=== PATIENT | female | born 1995 | race Hispanic/Latino ===

== ENCOUNTER 2017-02-06 21:29 | Emergency (ER) | payer SELFPAY ==
--- NOTE | 2017-02-06 21:59 | ER NURSING DOCUMENTATION ---
Nurse's Notes [facility] Name:Karely Harper Age:21 yrs Sex:Female :1995 Arrival Date:02/06/2017 Time:21:29 Bed1 Private MD:Madelin [facility] Diagnosis:Laryngitis, w/o Obstruction Presentation: 02/06 21:38 Presenting complaint: Patient states: throat pain and right ear pain. Transition of bw2 care: patient was not received from another setting of care. 21:38 Acuity: RENETTA 4 bw2 21:38 Method Of Arrival: Walk In 2 Triage Assessment: 21:39 General: Appears in no apparent distress, Behavior is appropriate for age. Pain: bw2 Complains of pain in throat right ear. EENT: Throat is pink. Historical: - Allergies: No known drug Allergies; - Tetanus: < 10 years. - Ebola Screening: : Patient negative for fever greater than or equal to 101.5 degrees Fahrenheit, and additional compatible Ebola Virus Disease symptoms. Patient denies exposure to infectious person. Patient denies travel to an Ebola-affected area in the 21 days before illness onset. No symptoms or risks identified at this time. . - Immunization history: Flu Vaccine None. - Social history: Smoking status: Patient states was never smoker of tobacco. Screenin:40 Infectious Disease Risk None. Abuse screen: Denies threats or abuse. Nutritional bw2 screening: No deficits noted. Assessment: 21:39 See Triage Assessment done by same RN. Respiratory: Airway is patent Respiratory effort bw2 is even, Breath sounds are clear bilaterally. Vital Signs: 21:40 BP 122 / 62; Pulse 74; Resp 18; Temp 98.5(O); Pulse Ox 97% on R/A; Weight 58.97 kg; bw2 Height 5 ft. 2 in. (157.48 cm); 21:40 Body Mass Index 23.78 (58.97 kg, 157.48 cm) bw2 ED Course: 21:31 Patient arrived in ED. em2 21:31 Physician, Ro is Private Physician. em2 21:32 Natalia Davis is Primary Nurse. bw2 21:39 Triage completed. bw2 21:40 Valuables Remains with patient. bw2 21:41 purchasing manager/sales on I Pad used to aid in communication. bw2 21:50 John Quintana MD is Attending Physician. tl1 21:50 [facility] is Referral Physician. tl1 21:56 [facility] is Private Physician. em1 Administered Medications: No medications were administered Outcome: 21:51 Discharge ordered by . tl1 21:58 Discharged to home ambulatory, with significant other. bw2 21:58 Condition: good 21:58 Discharge Assessment: Patient awake, alert and oriented x 3. No cognitive and/or functional deficits noted. Patient verbalized understanding of disposition instructions. 21:58 Discharge instructions given to patient, significant other, Instructed on discharge instructions, follow up and referral plans. medication usage, Demonstrated understanding of instructions. 21:58 Patient left the ED. 2 02/07 15:08 Discharge F/U Call: Unable to reach: no answer st Signatures: Vanda Kathleen, RN [facility] em1 Meidonaldking-reg, Vicki-reg em2 John Quintana MD MD 1 Natalia Davis 2
[2017-02-06] MEDS ORDERED: DEXAMETHASONE 4 MG TABLET PO ONE (22:07)
--- NOTE | 2017-02-08 21:59 | ER PHYSICIAN DOCUMENTATION ---
Physician Documentation [facility] Name:Karely Harper Age:21 yrs Sex:Female :1995 Arrival Date:02/06/2017 Time:21:29 Bed1 Private MD:Madelin [facility] ED Lilian John Disposition: 02/06 22:00 Chart complete. tl1 Disposition: 02/06/17 21:51 Discharged to Home/Self Care. Impression: Laryngitis, w/o Obstruction. - Condition is Good. - Discharge Instructions: Disease, Laryngeal - LARYNGITIS. - Medical Reconciliation form form. - Follow up: [facility]; When: 7 - 10 days; Reason: Recheck today's complaints. - Problem is new. - Symptoms are unchanged. - Notes: YOU RECEIVED8 MG OF ORAL DECADRON TO HELP DECREASE THE SWELLING IN YOUR VOCAL CORDS AND HELP YOUR VOICE IMPROVE. HPI: 21:34 This 21 yrs old Female presents to ER via Walk In with complaints of Sore tl1 Throat. 21:34 The patient presents with sore throat. The patient describes throat pain as constant, tl1 raw. Onset: The symptom(s)/episode began/occurred gradually, 2 day(s) ago. Severity of symptoms: At their worst the symptoms were moderate, in the emergency department the symptoms are unchanged. Modifying factors: The symptoms are alleviated by nothing, the symptoms are aggravated by swallowing. Associated signs and symptoms: Pertinent positives: cough, rhinorrhea, Sore throat Pertinent negatives chest pain, chills, diarrhea, dysphagia, earache, fever, headache, shortness of breath. The patient has not experienced similar symptoms in the past. Historical: - Allergies: No known drug Allergies; - Tetanus: < 10 years. - Ebola Screening: : Patient negative for fever greater than or equal to 101.5 degrees Fahrenheit, and additional compatible Ebola Virus Disease symptoms. Patient denies exposure to infectious person. Patient denies travel to an Ebola-affected area in the 21 days before illness onset. No symptoms or risks identified at this time. . - Immunization history: Flu Vaccine None. - Social history: Smoking status: Patient states was never smoker of tobacco. ROS: 21:40 ENT: Positive for hoarseness, Negative for tinnitus, nasal discharge, sinus congestion, tl1 sinus pain, dental pain, difficulty swallowing, difficulty handling secretions. 21:40 All other systems are negative. Exam: 21:40 Constitutional: This is a well developed, well nourished patient who is awake, alert, tl1 and in no acute distress. Head/Face: Normocephalic, atraumatic. Eyes: Pupils equal round and reactive to light, extra-ocular motions intact. Lids and lashes normal. Conjunctiva and sclera are non-icteric and not injected. Cornea within normal limits. Periorbital areas with no swelling, redness, or edema. ENT: Nares patent. No nasal discharge, no septal abnormalities noted. Tympanic membranes are normal and external auditory canals are clear. Oropharynx with no redness, swelling, or masses, exudates, or evidence of obstruction, uvula midline. Mucous membranes moist. Neck: Trachea midline, no thyromegaly or masses palpated, and no cervical lymphadenopathy. Supple, full range of motion without nuchal rigidity, or vertebral point tenderness. No Meningismus. 21:40 Cardiovascular: Regular rate and rhythm with a normal S1 and S2. No gallops, murmurs, tl1 or rubs. Normal PMI, no JVD. No pulse deficits. 21:40 Respiratory: the patient does not display signs of respiratory distress, Respirations: normal, Breath sounds: are normal. 21:40 Abdomen/GI: Palpation: abdomen is soft and non-tender. 21:40 Skin: Exam negative for acute changes. 21:40 Neuro: Exam negative for acute changes. Vital Signs: 21:40 BP 122 / 62; Pulse 74; Resp 18; Temp 98.5(O); Pulse Ox 97% on R/A; Weight 58.97 kg; bw2 Height 5 ft. 2 in. (157.48 cm); 21:40 Body Mass Index 23.78 (58.97 kg, 157.48 cm) bw2 MDM: 21:50 Patient medically screened. tl1 22:00 Differential diagnosis: cocksackie virus, epiglottitis, group A strep tonsillitis, tl1 laryngitis, pharyngitis, retropharyngeal abcess tracheobronchitis, viral syndrome. 22:00 Data reviewed: vital signs, nurses notes, and as a result, I will discharge patient. tl1 Counseling: I had a detailed discussion with the patient and/or guardian regarding: the historical points, exam findings, and any diagnostic results supporting the discharge/admit diagnosis, the need for outpatient follow up, to return to the emergency department if symptoms worsen or persist or if there are any questions or concerns that arise at home. Special discussion: she really feels like she needs to work and would like to try steroids to see if she can get her voice back a little sooner.... Dispensed Medications: No medications were administered Signatures: John Quintana MD MD 1 Natalia Davis [facility]
== END 2017-02-06 21:59 | disposition home or self-care (01) ==
LOC: ER 21:29
DX: J04.0 Acute laryngitis (principal)
CPT/HCPCS: 99281